=== PATIENT | female | born 2000 | race Caucasian/White ===

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

== ENCOUNTER 2021-07-01 21:47 | Inpatient (IN) ==
[2021-07-01] MEDS ORDERED: ONDANSETRON 4 MG/2 ML VIAL IV PRN (22:40)
[2021-07-01 23:10] LABS: Basophils % 0.3 % (0.0-0.8); Eosinophils # 0.1 10*3/uL (0.0-0.87); Eosinophils % 0.8 % (0.00-10.9); Hematocrit 32.5 VOL% (35.7-47.0); Hemoglobin 10.6 GM/DL (12.0-16.0); Immature Granulocytes % 0.7 %; Immature Granulocytes Absolute 0.08 #; Lymphocytes % 19.1 % (21.3-54.2); Mean Corpuscular HGB Conc 32.6 GM/DL (32-36); Mean Corpuscular Volume 89.3 FL (87-102); Mean Platelet Volume 10.2 FL (9.6-12.0); Monocytes % 6.9 % (1.7-12.7); Neutrophils % 72.2 % (38.7-73.9); Platelet Count 207 T/CUMM (130-400); Red Blood Count 3.64 MC/CUMM (3.8-5.5); Red Cell Distribution Width 13.9 % (9.3-17.3); White Blood Count 10.7 T/CUMM (4-12)
[2021-07-01 23:51] LABS: Bilirubin,Total 0.6 MG/DL (0.20-1.00); Calcium 8.9 MG/DL (8.5-10.1); Osmolality,Calculated 270.8 MOS/KG (273-304); Potassium 3.9 MMOL/L (3.5-5.1); Total Protein 7.1 G/DL (6.4-8.2)
[2021-07-02] MEDS: BUTORPHANOL 2 MG/ML VIAL IV PRN ×2 (01:00→04:32)
[2021-07-02] MEDS ORDERED: FAMOTIDINE 20 MG/2 ML VIAL IV ONE (05:46)
[2021-07-02] MEDS ORDERED: diphenhydrAMINE 50 MG/1 ML VIAL IV PRN (05:46)
[2021-07-02] MEDS ORDERED: PROMETHAZINE 25 MG/1 ML VIAL IM PRN (05:46)
[2021-07-02] MEDS ORDERED: NALOXONE 0.4 MG/ML VIAL IV PRN (05:46)
[2021-07-02] MEDS ORDERED: ePHEDrine 50 MG/ML VIAL IV PRN (05:46)
[2021-07-02] MEDS ORDERED: CITRIC ACID/SODIUM CITRATE 30 ML UDCUP PO ONE (05:46)
[2021-07-02] MEDS ORDERED: hydrOXYzine HCL 25 MG/1 ML VIAL IM PRN (05:46)
[2021-07-02] MEDS ORDERED: fentaNYL 2 MCG/ROPIV 0.2% EPID 100 ML EPIDURAL SCH (06:00)
[2021-07-02] MEDS ORDERED: LACTATED RINGERS 1,000 ML IV ONE (06:00)
[2021-07-02] MEDS: MEPERIDINE 50 MG/1 ML VIAL IV PRN ×2 (06:19→13:36)
[2021-07-02] MEDS: LACTATED RINGERS 1,000 ML IV SCH ×2 (06:55→11:59)
[2021-07-02] MEDS ORDERED: OXYTOCIN/LR 20 UNIT/1,000 ML BAG IV SCH (08:00)
[2021-07-02 08:51] LABS: Bilirubin,Urine Negative (Negative); Blood, Urine Small mg/dL (Negative); Glucose,Urine (UA) Negative (Negative); Ketones,Urine Negative (Negative); Mucus,Urine Occasional /LPF (Occasional); Nitrite,Urine Negative (Negative); Protein,Urine Negative; RBC,Urine 10 /HPF (0-4); Squamous Epithelial Cell,Urine Few /HPF (0-10); Urine Appearance CLEAR (Clear); Urine Color Yellow (Yellow); Urine Specific Gravity 1.014 (1.001-1.035); Urine Urobilinogen < 2.0 EU/DL (0.2-1.0)
[2021-07-02] MEDS ORDERED: CARBOPROST TROMETHAMINE 250 MCG/ML AMP IM ONE (12:49)
[2021-07-02] MEDS ORDERED: miSOPROStoL 200 MCG TABLET ONE (12:49)
[2021-07-02] MEDS ORDERED: TRANEXAMIC ACID 1,000 MG/10 ML VIAL ONE (12:49)
[2021-07-02] MEDS ORDERED: METHYLERGONOVINE 0.2 MG/1 ML AMP ONE (12:57)
[2021-07-02] MEDS ORDERED: OXYTOCIN/LR 30 UNIT/1,000 ML BAG IV ONE (13:13)
[2021-07-02] MEDS ORDERED: METHYLERGONOVINE 0.2 MG/1 ML AMP IM ONE (13:31)
[2021-07-02 13:42] LABS: Cord Arterial Blood HCO3 22.3 MMOL/L; Cord Venous Blood HCO3 22.2 MMOL/L; Cord Venous Blood PCO2 37.5 MMHG; Cord Venous Blood PO2 28.3 MMHG
[2021-07-02] MEDS ORDERED: IBUPROFEN 800 MG TABLET PO ONE (16:18)
[2021-07-02] MEDS: BENZOCAINE 20%/MENTHOL 0.5% SPRAY 56 GM CAN TOP PRN (18:12)
[2021-07-02] MEDS: DOCUSATE SODIUM 100 MG CAPSULE PO SCH (21:36)
[2021-07-03 04:12] LABS: Basophils % 0.3 % (0.0-0.8); Eosinophils # 0.1 10*3/uL (0.0-0.87); Eosinophils % 0.8 % (0.00-10.9); Immature Granulocytes % 0.7 %; Immature Granulocytes Absolute 0.07 #; Lymphocytes # 1.6 10*3/uL (1.4-4.0); Lymphocytes % 16.9 % (21.3-54.2); Mean Corpuscular Volume 89.2 FL (87-102); Mean Platelet Volume 10.2 FL (9.6-12.0); Monocytes % 5.6 % (1.7-12.7); Neutrophils % 75.7 % (38.7-73.9); Platelet Count 154 T/CUMM (130-400); Red Blood Count 3.25 MC/CUMM (3.8-5.5); Red Cell Distribution Width 13.9 % (9.3-17.3); White Blood Count 9.7 T/CUMM (4-12)
[2021-07-03] MEDS: DOCUSATE SODIUM 100 MG CAPSULE PO SCH ×2 (08:47→20:58)
[2021-07-03] MEDS: diphenhydrAMINE CAP 25 MG CAPSULE PO PRN ×2 (16:12→22:27)
[2021-07-04] MEDS ORDERED: IBUPROFEN 800 MG TABLET PO PRN (01:15)
[2021-07-04] MEDS: BENZOCAINE 20%/MENTHOL 0.5% SPRAY 56 GM CAN TOP PRN (01:19)
[2021-07-04] MEDS: DOCUSATE SODIUM 100 MG CAPSULE PO SCH (08:19)
[2021-07-04 09:03] VITALS: BP 125/63
[2021-07-04] MEDS ORDERED: DIPH/TET/ACEL PERT BOOSTER VACCINE 0.5 ML VIAL IM ONE (11:11)
== END 2021-07-04 13:11 | disposition home or self-care (01) | DRG 807 ==
LOC: N.LDOUT 21:47 → N.LD 21:48 → N.OB 07-02 16:51
PROVIDERS: ADMIT Obstetrics & Gynecology; ATTEND Obstetrics & Gynecology